=== PATIENT | male | born 1985 | race Caucasian/White ===

== ENCOUNTER → 2021-12-31 09:31 | Outpatient (CLI) | payer OTHER, SELFPAY | DX: R20.2 Paresthesia of skin (principal) | CPT/HCPCS: 95886; 95912 ==

== ENCOUNTER → 2022-01-28 10:20 | Outpatient (CLI) | payer OTHER, SELFPAY | DX: G56.20 Lesion of ulnar nerve, unspecified upper limb (principal) | CPT/HCPCS: 95886; 95909 ==